=== PATIENT | male | born 1965 | race Caucasian/White ===

== ENCOUNTER 2017-08-31 11:57 | Emergency (ER) | payer OTHER, SELFPAY ==
[~2017-08-31 11:57] MED LIST: Iopamidol 370 76% 100 ML VIAL ONE; Sodium Chloride 0.9% 1,000 ML BAG ONE
[2017-08-31 12:30] LABS: Bilirubin Negative (Negative); Blood, Urine Negative (Negative); Clarity Clear (Clear); Glucose, Urine (Dipstick) Negative (Negative); Leukocyte Negative (Negative); Nitrite Negative (Negative); Protein, Urine (Dipstick) Negative (Neg-Trace)
[2017-08-31] MEDS ORDERED: Ondansetron HCl/PF 4 MG/2 ML Vial ONE ×2 (12:35→13:37)
[2017-08-31] MEDS ORDERED: Pantoprazole 40 MG VIAL ONE (12:35)
[2017-08-31] MEDS ORDERED: Ketorolac Tromethamine 30 MG/ML VIAL ONE (12:35)
[2017-08-31 12:49] LABS: #Basophils 0.1 thou/uL (0.0-0.2); #Lymphocytes 3.6 thou/uL (1.20-3.40); #Monocytes 0.9 thou/uL (0.11-0.59); #Neutrophils 5.6 thou/uL (1.40-6.50); %Basophils 0.9 % (0.0-1.0); %Eosinophils 0.4 % (0.0-10.0); %Lymphocytes 35.3 % (21.0-51.0); %Monocytes 8.9 % (0.0-10.0); %Neutrophils 54.5 % (42.0-75.0); Hemoglobin 18.3 g/dL (14.0-18.0); Mean Corpuscular HGB CONC 33.2 g/dL (32.0-36.0); Mean Corpuscular Hemoglobin 30.8 pg (27.0-31.0); Mean Corpuscular Volume 92.8 fl (80.0-94.0); Mean Platelet Volume 10.1 fL (7.4-10.4); PLT Morphology Comment Appears Adequate; Platelet Count 295 thou/uL (130-400); RBC Distribution Width 10.7 % (11.5-14.5); Red Blood Cell (RBC) Count 5.93 mill/uL (4.70-6.10); White Blood Cell (WBC) Count 10.3 thou/uL (4.8-10.8)
[2017-08-31 12:59] LABS: ALT (SGPT) 58 U/L (8-55); AST (SGOT) 34 U/L (5-34); Albumin 4.3 g/dL (3.5-5.0); Alkaline Phosphatase 101 U/L (40-150); Anion Gap 18 mmol/L (10-20); BUN (Urea Nitrogen) 15 mg/dL (8.4-25.7); CK (CPK) 38 U/L (30-200); Calc. Creatinine Clearance 0 mL/min (70-130); Calcium 10.6 mg/dL (7.8-10.44); Carbon Dioxide 23 mmol/L (22-29); Chloride 100 mmol/L (98-107); Estimated GFR-MDRD Greater than 90; Globulin 3.8 g/dL (2.4-3.5); Glucose 116 mg/dL (70-105); Lipase 28 U/L (8-78); Potassium 3.8 mmol/L (3.5-5.1); Protein, Total 8.1 g/dL (6.0-8.3); Sodium 137 mmol/L (136-145)
[2017-08-31] MEDS ORDERED: MORPHINE 10 MG/ML SYRINGE ONE (13:37)
--- NOTE | 2017-08-31 14:52 | CT ---
CT ABDOMEN AND PELVIS WITH CONTRAST: History: Midline lower abdominal pain. Comparison: None. FINDINGS: Lung bases are clear. No pericardial effusion. Portal vein is patent. The spleen measures just under 12 cm. Liver is unremarkable. Gallbladder is unremarkable. There is a tiny mass within the pancreatic tail x 2 suggesting pancreatic lipoma. Moderate atherosclerotic plaque of the aorta. No aneurysmal dilatation. No adenopathy in the abdomen or pelvis. Fat containing right sided direct hiatal hernia. Appendix is not definitely visualized although there are no secondary signs of acute appendicitis. No dilated loops of large or small bowel. No free intraperitoneal gas or fluid. Moderate degenerative disc space disease at L2-5. There is a bilateral pars interarticularis defect a t L5 with grade I anterolisthesis. Punctate nonobstructed calculus interpolar left kidney. Adrenal gl ands are unremarkable. IMPRESSION: 1. Punctate calculus interpolar left kidney, nonobstructed. 2. No acute inflammatory process in the abdomen or pelvis. 3. Fat containing right sided direct inguinal hernia. 4. No evidence for bowel obstruction. 5. Normal gallbladder. POS: OFF
== END 2017-08-31 14:55 | disposition home or self-care (01) ==
LOC: MADERS 11:57
DX: R11.2 Nausea with vomiting, unspecified (principal); R10.84 Generalized abdominal pain; G89.29 Other chronic pain; Z79.891 Long term (current) use of opiate analgesic
CPT/HCPCS: 74177; 80053; 81003; 82550; 83690; 85025; 96361; 96374; 96375; 96376; C9113; J1885; J2270; J2405; J7050

== ENCOUNTER 2017-09-20 20:07 | Emergency (ER) | payer SELFPAY ==
[2017-09-20] MEDS ORDERED: Dexamethasone 4 MG TAB ONE (20:29)
[2017-09-20] MEDS ORDERED: Ketorolac Tromethamine 60 MG/2 ML VIAL ONE (20:29)
[2017-09-20] MEDS ORDERED: Acetaminophen 500 MG TAB ONE (20:29)
== END 2017-09-20 21:04 | disposition home or self-care (01) ==
LOC: MADERS 20:07
DX: M25.552 Pain in left hip (principal); M25.562 Pain in left knee
CPT/HCPCS: 96372; J1885; J8540

== ENCOUNTER 2017-09-25 08:11 | Emergency (ER) | payer SELFPAY ==
[2017-09-25] MEDS ORDERED: Ondansetron ODT 4 MG TAB ONE (08:42)
--- NOTE | 2017-09-25 09:25 | RAD ---
RADIOGRAPH CHEST 1 VIEW RADIOGRAPH ABDOMEN 2 VIEWS: HISTORY: A 52-year-old male with generalized abdominal pain. FINDINGS: There are no air space densities or pulmonary edema. The lateral costophrenic angles are sharp. The re is no evidence of pneumothorax or pneumoperitoneum. There is no evidence of dilated small bowel loops. There are no differential air/fluid levels. Ther e is a moderate volume of colonic stool. IMPRESSION: 1) No acute pulmonary findings. 2) No evidence of bowel obstruction. 3) Possible constipation. [place] [] POS: ARMAAN
[2017-09-25] MEDS ORDERED: Mag-Al Plus 1200 MG/1200 MG/120 MG/30 ML UDCUP ONE (09:28)
[2017-09-25 09:35] LABS: #Basophils 0.1 thou/uL (0.0-0.2); #Eosinphils 0.2 thou/uL (0.0-0.7); #Lymphocytes 2.4 thou/uL (1.20-3.40); #Monocytes 0.6 thou/uL (0.11-0.59); #Neutrophils 4.8 thou/uL (1.40-6.50); %Eosinophils 1.9 % (0.0-10.0); %Lymphocytes 30.1 % (21.0-51.0); %Monocytes 7.8 % (0.0-10.0); %Neutrophils 59.2 % (42.0-75.0); Hemoglobin 15.3 g/dL (14.0-18.0); Mean Corpuscular HGB CONC 34.1 g/dL (32.0-36.0); Mean Corpuscular Hemoglobin 31.4 pg (27.0-31.0); Mean Corpuscular Volume 91.9 fl (80.0-94.0); Mean Platelet Volume 10.4 fL (7.4-10.4); Platelet Count 204 thou/uL (130-400); RBC Distribution Width 10.7 % (11.5-14.5); Red Blood Cell (RBC) Count 4.87 mill/uL (4.70-6.10)
[2017-09-25 09:55] LABS: ALT (SGPT) 60 U/L (8-55); AST (SGOT) 41 U/L (5-34); Albumin 3.8 g/dL (3.5-5.0); Alcohol Less than 10 mg/dL (Less than 10); Alkaline Phosphatase 85 U/L (40-150); Anion Gap 13 mmol/L (10-20); BUN (Urea Nitrogen) 17 mg/dL (8.4-25.7); Bilirubin, Total 0.4 mg/dL (0.2-1.2); Calc. Creatinine Clearance 0 mL/min (70-130); Calcium 9.7 mg/dL (7.8-10.44); Carbon Dioxide 23 mmol/L (22-29); Chloride 105 mmol/L (98-107); Estimated GFR-MDRD Greater than 90; Globulin 2.6 g/dL (2.4-3.5); Glucose 102 mg/dL (70-105); Lipase 35 U/L (8-78); Potassium 3.7 mmol/L (3.5-5.1); Protein, Total 6.4 g/dL (6.0-8.3); Sodium 137 mmol/L (136-145)
[2017-09-25 10:11] LABS: Amphetamine Not Detected (NotDetected); Barbiturates Screen Not Detected (NotDetected); Benzodiazepine Screen Not Detected (NotDetected); Bilirubin Negative (Negative); Blood, Urine Trace (Negative); Clarity Clear (Clear); Cocaine Metabolite Screen Not Detected (NotDetected); Glucose, Urine (Dipstick) Negative (Negative); Leukocyte Negative (Negative); Methadone Not Detected (NotDetected); Methamphetamine Not Detected (NotDetected); Nitrite Negative (Negative); Opiate Screen Detected (NotDetected); Phencyclidine (PCP) Not Detected (NotDetected); Protein, Urine (Dipstick) Negative (Neg-Trace); Specific Gravity, Urine 1.015 (1.005-1.030); THC/Cannabinoid Screen Detected (NotDetected); Tricyclic Screen Not Detected (NotDetected); Urobilinogen 0.2 mg/dL (0.2-1.0)
[2017-09-25 10:12] LABS: Medtox Control Line Valid? VALID (VALID); Oxycodone Screen Not Detected (NotDetected)
[2017-09-25 10:16] LABS: Bacteria/HPF Rare-Few HPF (None Seen); RBC/HPF 0-3 HPF (0-3); Squamous Epithelial 0-3 HPF (0-3); WBC/HPF None Seen HPF (0-3)
[2017-09-25] MEDS ORDERED: Promethazine HCl 25 MG/ML VIAL ONE (10:49)
== END 2017-09-25 11:00 | disposition home or self-care (01) ==
LOC: MADERS 08:11
DX: K29.70 Gastritis, unspecified, without bleeding (principal); G89.29 Other chronic pain; F17.210 Nicotine dependence, cigarettes, uncomplicated; Z79.899 Other long term (current) drug therapy
CPT/HCPCS: 36415; 74022; 80053; 80306; 80307; 81003; 81015; 83690; 85025; 96372; J2550; Q0162

== ENCOUNTER 2018-01-25 13:09 | Emergency (ER) | payer SELFPAY ==
[2018-01-25 13:43] LABS: #Eosinphils 0.2 thou/uL (0.0-0.7); #Lymphocytes 2.9 thou/uL (1.20-3.40); #Monocytes 0.6 thou/uL (0.11-0.59); #Neutrophils 4.3 thou/uL (1.40-6.50); %Basophils 0.6 % (0.0-1.0); %Eosinophils 2.5 % (0.0-10.0); %Monocytes 7.4 % (0.0-10.0); %Neutrophils 53.5 % (42.0-75.0); Mean Corpuscular HGB CONC 35.3 g/dL (32.0-36.0); Mean Corpuscular Hemoglobin 32.1 pg (27.0-31.0); Mean Corpuscular Volume 90.9 fL (78.0-98.0); Mean Platelet Volume 10.3 fL (7.4-10.4); Platelet Count 175 thou/uL (130-400); RBC Distribution Width 11.3 % (11.5-14.5); Red Blood Cell (RBC) Count 4.67 mill/uL (4.70-6.10); White Blood Cell (WBC) Count 8.1 thou/uL (4.8-10.8)
[2018-01-25 13:58] LABS: Anion Gap 15 mmol/L (10-20); BUN (Urea Nitrogen) 16 mg/dL (8.4-25.7); Calc. Creatinine Clearance 0 mL/min (70-130); Calcium 9.3 mg/dL (7.8-10.44); Carbon Dioxide 21 mmol/L (22-29); Chloride 109 mmol/L (98-107); Estimated GFR-MDRD 88; Glucose 146 mg/dL (70-105); Potassium 3.7 mmol/L (3.5-5.1); Sodium 141 mmol/L (136-145)
[2018-01-25] MEDS ORDERED: Morphine 4 MG/ML VIAL ONE (14:00)
[2018-01-25] MEDS ORDERED: Ketorolac Tromethamine 60 MG/2 ML VIAL ONE (14:01)
[2018-01-25] MEDS ORDERED: Lidocaine 1% 20 ML MDV ONE (14:21)
[2018-01-25] MEDS ORDERED: HYDROcodone/Acetaminophen 10/325 mg Tablet ONE (14:39)
[2018-01-25 17:05] LABS: BF Color Red; BF WBC/Nonhematics Ct. - Manua 20 /cumm; Body Fluid Source SYNOVIAL FLUID; Clarity Cloudy/Turbid (Clear); RBC Count-Automated 54000 /cumm; Tube # EDTA; WBC Background Count 0.01
[2018-01-25 17:06] LABS: BF Segmented Neutrophils 32 %; Cell Count Non Hematic 50 %; Lymphocytes 18 %
[2018-01-25] MEDS ORDERED: Dexamethasone 4 MG TAB ONE (17:25)
== END 2018-01-25 17:30 | disposition home or self-care (01) ==
LOC: MADERS 13:09
DX: M17.12 Unilateral primary osteoarthritis, left knee (principal); F17.210 Nicotine dependence, cigarettes, uncomplicated
CPT/HCPCS: 20610; 36415; 80048; 85025; 85060; 89051; 96374; 96375; J1885; J2001; J2270; J8540

== ENCOUNTER 2018-05-21 18:49 | Emergency (ER) | payer SELFPAY ==
[2018-05-21] MEDS ORDERED: Bupivacaine PF 0.5% 30 ML VIAL ONE (19:13)
[2018-05-21] MEDS ORDERED: Penicillin V Potassium 250 MG TAB ONE (19:26)
[2018-05-21] MEDS ORDERED: HYDROcodone/Acetaminophen 5/325 mg Tablet ONE (19:32)
== END 2018-05-21 19:37 | disposition home or self-care (01) ==
LOC: MADERS 18:49
DX: K04.7 Periapical abscess without sinus (principal); F17.210 Nicotine dependence, cigarettes, uncomplicated
CPT/HCPCS: 64400; S0020

== ENCOUNTER 2018-05-22 17:17 | Emergency (ER) | payer SELFPAY ==
[2018-05-22] MEDS ORDERED: Ketorolac Tromethamine 60 MG/2 ML VIAL ONE (17:43)
== END 2018-05-22 17:45 | disposition home or self-care (01) ==
LOC: MADERS 17:17
DX: K08.89 Other specified disorders of teeth and supporting structures (principal); F17.210 Nicotine dependence, cigarettes, uncomplicated; Z79.891 Long term (current) use of opiate analgesic; Z79.899 Other long term (current) drug therapy
CPT/HCPCS: 96372; J1885

== ENCOUNTER 2018-10-29 15:56 | Emergency (ER) | payer SELFPAY ==
[2018-10-29] MEDS ORDERED: Ketorolac Tromethamine 60 MG/2 ML VIAL ONE (16:16)
== END 2018-10-29 16:36 | disposition home or self-care (01) ==
LOC: MADERS 15:56
DX: S16.1XXA Strain of muscle, fascia and tendon at neck level, initial encounter (principal); M25.511 Pain in right shoulder; M79.10 Myalgia, unspecified site; F17.210 Nicotine dependence, cigarettes, uncomplicated; X58.XXXA Exposure to other specified factors, initial encounter
CPT/HCPCS: 96372; J1885

== ENCOUNTER 2019-05-21 16:30 | Emergency (ER) | payer SELFPAY ==
--- NOTE | 2019-05-21 17:11 | RAD ---
Left ankle 3 views HISTORY: Left ankle pain. FINDINGS: Mild joint space narrowing, osteophytosis, and subchondral sclerosis. Ankle mortise and olivier ar dome are intact. Degenerative changes of the hindfoot. Plantar and Achilles enthesophytes at the posterior aspect of the calcaneus. IMPRESSION: Moderate osteoarthritic changes of the left ankle. No acute osseous abnormalities are dem onstrated. Heel spurs.
[2019-05-21] MEDS ORDERED: Ondansetron ODT 4 MG TAB ONE (17:26)
[2019-05-21] MEDS ORDERED: Ketorolac Tromethamine 30 MG/ML VIAL ONE (17:26)
== END 2019-05-21 17:35 | disposition home or self-care (01) ==
LOC: MADERS 16:30
DX: M19.072 Primary osteoarthritis, left ankle and foot (principal); F17.210 Nicotine dependence, cigarettes, uncomplicated
CPT/HCPCS: 96372; J1885; Q0162

== ENCOUNTER 2019-06-02 16:24 | Emergency (ER) | payer SELFPAY | END 2019-06-02 16:55 | disposition home or self-care (01) | LOC: MADERS 16:24 | DX: M25.572 Pain in left ankle and joints of left foot (principal); F17.210 Nicotine dependence, cigarettes, uncomplicated | CPT/HCPCS: 99281 ==

== ENCOUNTER 2020-02-26 09:19 | Emergency (ER) | payer SELFPAY ==
--- NOTE | 2020-02-26 10:17 | RAD ---
Exam: XR Knee Rt 4 View STANDARD HISTORY: Right knee pain for one day. No history of trauma. COMPARISON: None FINDINGS: Minimal tricompartment osteophytosis is present. Calcifications overlie both the medial and lateral j oint compartments suggesting chondrocalcinosis. No acute fracture, dislocation, or other acute osseous abnormality is identified. IMPRESSION: 1. No acute osseous abnormalities right knee. 2. Minimal osteoarthritis with chondrocalcinosis.
== END 2020-02-26 11:05 | disposition home or self-care (01) ==
LOC: MADERS 09:19
DX: M25.572 Pain in left ankle and joints of left foot (principal); G89.29 Other chronic pain; M25.561 Pain in right knee; M10.9 Gout, unspecified; F17.210 Nicotine dependence, cigarettes, uncomplicated

== ENCOUNTER 2020-04-29 18:25 | Emergency (ER) | payer SELFPAY ==
[~2020-04-29 18:25] MED LIST changes: -Sodium Chloride 0.9% 1,000 ML BAG ONE
[2020-04-29] MEDS ORDERED: Lidocaine 1% w/Epinephrine 1:100K 20 ML VIAL ONE (19:11)
[2020-04-29] MEDS ORDERED: Sodium Chloride 0.9% 100 ML ONE (19:13)
[2020-04-29] MEDS ORDERED: Piperacillin/Tazobactam 4.5 GM VIAL ONE (19:13)
[2020-04-29 19:53] LABS: #Basophils 0.1 thou/uL (0.0-0.2); #Eosinphils 0.2 thou/uL (0.0-0.7); #Lymphocytes 2.1 thou/uL (1.20-3.40); #Monocytes 1.3 thou/uL (0.11-0.59); %Basophils 0.5 % (0.0-1.0); %Eosinophils 1.3 % (0.0-10.0); %Lymphocytes 15.3 % (21.0-51.0); %Monocytes 9.3 % (0.0-10.0); %Neutrophils 73.5 % (42.0-75.0); Hemoglobin 13.3 g/dL (14.0-18.0); Mean Corpuscular HGB CONC 33.2 g/dL (32.0-36.0); Mean Corpuscular Hemoglobin 30.2 pg (27.0-31.0); Mean Corpuscular Volume 90.9 fL (78.0-98.0); Mean Platelet Volume 9.6 fL (7.4-10.4); Platelet Count 216 thou/uL (130-400); Red Blood Cell (RBC) Count 4.39 mill/uL (4.70-6.10); White Blood Cell (WBC) Count 13.6 thou/uL (4.8-10.8)
[2020-04-29 20:11] LABS: ALT (SGPT) 28 U/L (8-55); AST (SGOT) 25 U/L (5-34); Albumin 3.8 g/dL (3.5-5.0); Alkaline Phosphatase 95 U/L (40-110); Anion Gap 14 mmol/L (10-20); BUN (Urea Nitrogen) 24 mg/dL (8.4-25.7); Bilirubin, Total 0.7 mg/dL (0.2-1.2); Calc. Creatinine Clearance 0 mL/min (70-130); Carbon Dioxide 21 mmol/L (22-29); Chloride 105 mmol/L (98-107); Estimated GFR-MDRD 88; Globulin 3.4 g/dL (2.4-3.5); Glucose 115 mg/dL (70-105); Potassium 3.3 mmol/L (3.5-5.1); Protein, Total 7.2 g/dL (6.0-8.3); Sodium 137 mmol/L (136-145)
--- NOTE | 2020-04-29 20:39 | CT ---
EXAM: CT NECK SOFT TISSUE POST CONTRAST: HISTORY:Difficulty swallowing. Dental pain. COMPARISON:None CORRELATION:None FINDINGS: Brain parenchyma: No pathologic enhancement of the visualized brain parenchyma. Sinuses: Mild mucosal thickening of the right maxillary sinus Orbits: Not assessed Nasopharynx:Adequate aeration. No mucosal abnormality. Oral cavity:No obvious masses in the anterior cavity. Midline fatty raphae of the tongue is preserved . There is mild edematous change involving the right submandibular space. There is a peripherally enhancing centrally hypodense focus in the right submandibular space measuring 0.8 cm suggesting poss ible abscess. There is a second larger peripherally enhancing hypodense focus in the right subareolar space measuring 2.3 x 4.7 cm. Hypopharynx: No mucosal abnormality. Epiglottis has a normal caliber. Preepiglottic fat is preserved .. Larynx: No mucosal abnormality with regards to the supraglottic, glottic and subglottic larynx. Paraspinal muscles: Symmetric attenuation of the paraspinal muscles and symmetric attenuation of the sternocleidomastoid muscles.. Parotid and salivary glands: There is asymmetric edema in the right submandibular gland. Vessels: No significant stenosis. Technique limits evaluation. Thyroid gland: Unremarkable. Spine: Vertebral body height is maintained. No fracture. No significant central canal stenosis or sig nificant neural foraminal narrowing. Limited evaluation due to technique. Lymph nodes: There are enlarged right level [address] [employer] right level 1 lymph node me asures 1.6 x 0.6 cm. Lung apices and upper mediastinum: No acute abnormality. Additional findings: There is induration of the right facial subcutaneous fat and soft tissues at the level of the right mandible. There is a periapical lucency involving the posterior-most right mandibular tooth without evidence of osseous erosion. There is mild edema involving the is adjacent g ingival soft tissues. IMPRESSION: 1. Periapical abscess involving the posterior-most right mandibular tooth. There are associated infla mmatory changes involving the adjacent soft tissues including the right sublingual space. There is inflammatory change in the overlying subcutaneous fat with induration. 2. Reactive lymphadenopathy. Reactive changes of the right submandibular gland 3. Peripherally enhancing fluid collection the right submandibular space likely representing developi ng soft tissue abscesses. Transcribed Date/Time: 04/29/2020 8:44 PM
[2020-04-29] MEDS ORDERED: Amoxicillin/Potassium Clav 875 MG TAB ONE (20:51)
[2020-04-29] MEDS ORDERED: Acetaminophen/Codeine 30-300mg Tablet ONE (20:51)
== END 2020-04-29 21:01 | disposition home or self-care (01) ==
LOC: MADERS 18:25
DX: K04.7 Periapical abscess without sinus (principal); K02.9 Dental caries, unspecified; M10.9 Gout, unspecified; F17.210 Nicotine dependence, cigarettes, uncomplicated; Z79.899 Other long term (current) drug therapy
CPT/HCPCS: 36415; 64400; 70491; 80053; 83605; 85025; 86140; 87040; 96365; J2543; J3490; Q9967

== ENCOUNTER 2020-05-28 15:24 | Outpatient (CLI) | payer OTHER ==
--- NOTE | 2020-05-28 16:06 | RAD ---
3 views of the left ankle: 05/28/2020 COMPARISON: 05/21/2020 HISTORY: Ankle pain FINDINGS: There are has been interval development of prominent erosive change involving the posterior aspect of the subtalar joint. There is soft tissue infiltration of the fat posterior to the talus on the lateral examination. Enthesophyte formation is seen at the origin of the plantar aponeurosis and insertion of the Achilles tendon. No acute fracture or dislocation is seen. IMPRESSION: Interval development of prominent erosive change centered at the posterior aspect of the left subtalar joint with erosive changes suspected within the adjacent calcaneus and talus. There is also new soft tissue swelling with infiltration of the fat posterior to the talus on the lateral v iew. This is most suspicious for inflammatory/infectious arthritis/septic arthritis. Changes associated with interval trauma may be a possibility as well. Recommend orthopedic consultation and further assessment MRI CODE T
--- NOTE | 2020-05-28 17:26 | RAD ---
LEFT FOOT: 05/28/20 Three views. HISTORY: Foot pain. There are enthesophytes from the posterior and plantar calcaneus. The posterior subtalar joint shows abnormality. This is better appreciated on the lateral view of the ankle. The joint is narrowed and there is evidence of cystic change at this joint. The findings are probably on the basis of arthritis. Associated coalition is not excluded. Recommend further evaluatio n with CT ankle to further evaluate the posterior subtalar joint. Tarsals, metatarsals and phalanges otherwise unremarkable. IMPRESSION: Abnormality involving the posterior subtalar joint. Recommend further evaluation with CT ankle. POS: AGW
== END 2020-05-28 15:25 | disposition home or self-care (01) ==
LOC: MADRAD 15:24
PROVIDERS: ATTEND Family Medicine
DX: M25.472 Effusion, left ankle (principal); M25.572 Pain in left ankle and joints of left foot; M76.62 Achilles tendinitis, left leg; M79.89 Other specified soft tissue disorders

== ENCOUNTER 2020-06-06 06:17 | Emergency (ER) | payer SELFPAY ==
[2020-06-06] MEDS ORDERED: Ondansetron PF 4 MG/2 ML Vial ONE (06:59)
[2020-06-06 07:09] LABS: CRP (Inflammatory) 3.06 mg/dL (= or < 0.5); Hemoglobin 16.2 g/dL (14.0-18.0); Mean Corpuscular HGB CONC 31.6 g/dL (32.0-36.0); Mean Corpuscular Hemoglobin 29.5 pg (27.0-31.0); Mean Corpuscular Volume 93.4 fL (78.0-98.0); Mean Platelet Volume 10.3 fL (7.4-10.4); Platelet Count 211 thou/uL (130-400); Red Blood Cell (RBC) Count 5.48 mill/uL (4.70-6.10); Uric Acid 8.2 mg/dL (3.5-7.2); White Blood Cell (WBC) Count 50.9 thou/uL (4.8-10.8)
[2020-06-06 07:11] LABS: ALT (SGPT) 82 U/L (8-55); AST (SGOT) 82 U/L (5-34); Albumin 3.7 g/dL (3.5-5.0); Alkaline Phosphatase 148 U/L (40-110); Anion Gap 18 mmol/L (10-20); BUN (Urea Nitrogen) 31 mg/dL (8.4-25.7); Bilirubin, Total 0.6 mg/dL (0.2-1.2); CK (CPK) 32 U/L (30-200); Calc. Creatinine Clearance 0 mL/min (70-130); Carbon Dioxide 19 mmol/L (22-29); Chloride 101 mmol/L (98-107); Estimated GFR-MDRD 47; Globulin 3.7 g/dL (2.4-3.5); Glucose 127 mg/dL (70-105); Potassium 4.6 mmol/L (3.5-5.1); Protein, Total 7.4 g/dL (6.0-8.3); Sodium 133 mmol/L (136-145)
[2020-06-06] MEDS ORDERED: Sodium Chloride 0.9% 1,000 ML ONE ×2 (07:13→08:10)
[2020-06-06 07:15] LABS: Anisocytosis SLIGHT = 6-15 cells (100X) (0-5/hpf); Band 54 % (5-11); Lymphocytes 1 % (21-51); MDiff Complete? YES; Manual Diff?? YES; Monocytes 3 % (0-10); Neutrophil 42 % (42-75); Platelet Morphology Comment Appears Adequate
[2020-06-06] MEDS ORDERED: Ketorolac Tromethamine 30 MG/ML VIAL ONE (07:20)
[2020-06-06] MEDS ORDERED: Morphine 4 MG/ML VIAL ONE (07:47)
--- NOTE | 2020-06-06 08:24 | CT ---
Exam: Left ankle CT scan without IV contrast: HISTORY: Pain COMPARISON: Left ankle x-ray, 05/28/2020 FINDINGS: There is extensive metal artifact from some type of adjacent metal object lateral to the foot and ank le. This considerably lowers the sensitivity of this study. There are extensive destructive changes involving the posterior subtalar joint with circumscribed intraosseous cystic changes in the posterio r lateral talus up to 1.4 cm in diameter and in the medial posterior talus up to 1.9 cm in size the margins of this articular destructive change. These periarticular destructive changes are fairly well -defined and some have sclerotic margins. There is also some nonspecific soft tissue swelling, possibly representing some joint effusion but in addition there appears to be more posterior nonspeci fic swelling/edema including the region of Kager's fat. This is nonspecific. Soft tissue changes are very poorly evaluated with CT. IMPRESSION: Very extensive destructive changes of the posterior subtalar joint with prominent circumscribed scler otic margin intraosseous destructive and cystic changes particularly in the posterior talus and adjacent calcaneus evidence for severe arthritis. This certainly could represent gouty arthritis or p ossibly even infectious arthritis which I would favor over osteoarthritis or rheumatoid arthritis or posttraumatic arthritis. Correlate with laboratory findings. If the diagnosis is still in doubt, consider follow-up nonemergent ankle MRI which would allow better evaluation for soft tissue changes.
[2020-06-06 09:22] LABS: Bilirubin Negative (Negative); Blood, Urine Trace (Negative); Clarity Clear (Clear); Glucose, Urine (Dipstick) Negative (Negative); Ketone, Urine Negative (Negative); Leukocyte Negative (Negative); Nitrite Negative (Negative); Protein, Urine (Dipstick) Negative (Neg-Trace); Specific Gravity, Urine 1.025 (1.005-1.030); Urobilinogen 0.2 mg/dL (Less than 2); pH, Urine 5.5 (5.0-9.0)
[2020-06-06 09:30] LABS: RBC/HPF 0-3 HPF (0-3); Squamous Epithelial 0-3 HPF (0-3); WBC/HPF 0-3 HPF (0-3); Yeast-Budding Rare HPF (None Seen)
[2020-06-06 09:31] LABS: Cocaine Metabolite Screen Not Detected (NotDetected); Methamphetamine Not Detected (NotDetected); Phencyclidine (PCP) Not Detected (NotDetected); THC/Cannabinoid Screen Detected (NotDetected)
[2020-06-06 09:32] LABS: Amphetamine Not Detected (NotDetected); Barbiturates Screen Not Detected (NotDetected); Benzodiazepine Screen Not Detected (NotDetected); Medtox Control Line Valid? VALID (VALID); Methadone Not Detected (NotDetected); Opiate Screen Detected (NotDetected); Oxycodone Screen Not Detected (NotDetected); Tricyclic Screen Not Detected (NotDetected)
== END 2020-06-06 09:16 | disposition short-term general hospital (02) ==
LOC: MADERS 06:17
DX: M86.9 Osteomyelitis, unspecified (principal); F17.210 Nicotine dependence, cigarettes, uncomplicated; M10.9 Gout, unspecified
CPT/HCPCS: 80053; 80306; 81003; 81015; 82550; 83605; 84550; 85025; 85060; 86140; 87040; 96361; 96374; 96375; J1885; J2270; J2405; J7050

== ENCOUNTER 2021-06-27 10:07 | Emergency (ER) | payer MEDICAID, SELFPAY ==
[2021-06-27] MEDS ORDERED: Ketorolac Tromethamine 30 MG/ML VIAL ONE (10:28)
[2021-06-27] MEDS ORDERED: Morphine 10 MG/ML VIAL ONE (10:28)
[2021-06-27] MEDS ORDERED: Diazepam 5 MG TAB ONE (10:36)
[2021-06-27] MEDS ORDERED: Dexamethasone 4 mg/ml Vial ONE (11:34)
[2021-06-27] MEDS ORDERED: Morphine 4 MG/ML VIAL ONE ×2 (12:09→15:33)
[2021-06-27 12:12] LABS: SARS-CoV-2 NAA Rapid Test DETECTED (NotDetected)
[2021-06-27] MEDS ORDERED: Ondansetron PF 4 MG/2 ML Vial ONE (15:33)
== END 2021-06-27 15:37 | disposition short-term general hospital (02) ==
LOC: MADERS 10:07
DX: U07.1 COVID-19 (principal); M48.061 Spinal stenosis, lumbar region without neurogenic claudication; K21.9 Gastro-esophageal reflux disease without esophagitis; F17.210 Nicotine dependence, cigarettes, uncomplicated; M10.9 Gout, unspecified
CPT/HCPCS: 36415; 86140; 94760; 96372; 96374; 96375; 96376; J1100; J1885; J2270; J2405; U0002

== ENCOUNTER 2021-07-06 09:33 | Emergency (ER) | payer SELFPAY ==
[2021-07-06] MEDS ORDERED: Dexamethasone 10 MG/ML VIAL ONE (09:51)
[2021-07-06] MEDS ORDERED: Ketorolac Tromethamine 30 MG/ML VIAL ONE (09:51)
[2021-07-06 10:52] LABS: Mean Corpuscular HGB CONC 32.8 g/dL (32.0-36.0); Mean Corpuscular Hemoglobin 29.5 pg (27.0-31.0); Mean Corpuscular Volume 90.1 fL (78.0-98.0); Mean Platelet Volume 8.9 fL (7.4-10.4); Platelet Count 317 thou/uL (130-400); RBC Distribution Width 10.3 % (11.5-14.5); Red Blood Cell (RBC) Count 6.45 mill/uL (4.70-6.10); White Blood Cell (WBC) Count 21.5 thou/uL (4.8-10.8)
[2021-07-06 10:59] LABS: ALT (SGPT) 39 U/L (8-55); AST (SGOT) 25 U/L (5-34); Albumin 3.6 g/dL (3.5-5.0); Alkaline Phosphatase 114 U/L (40-110); Anion Gap 15 mmol/L (10-20); BUN (Urea Nitrogen) 32 mg/dL (8.4-25.7); Bilirubin, Total 1.1 mg/dL (0.2-1.2); Calc. Creatinine Clearance 0 mL/min (70-130); Carbon Dioxide 23 mmol/L (22-29); Chloride 98 mmol/L (98-107); Globulin 3.9 g/dL (2.4-3.5); Glucose 115 mg/dL (70-105); Potassium 4.4 mmol/L (3.5-5.1); Protein, Total 7.5 g/dL (6.0-8.3); Sodium 132 mmol/L (136-145)
[2021-07-06 11:00] LABS: MDiff Complete? YES
[2021-07-06 11:03] LABS: Lymphocytes 5 % (21-51); Monocytes 6 % (0-10); Neutrophil 87 % (42-75)
[2021-07-06 11:04] LABS: Band 2 % (5-11); Platelet Morphology Comment Appears Adequate
[2021-07-06 11:16] LABS: Calcium 12.3 mg/dL (7.8-10.44)
[2021-07-06] MEDS ORDERED: Morphine 10 MG/ML VIAL ONE (11:52)
[2021-07-06 14:52] LABS: #Basophils 0.1 thou/uL (0.0-0.2); #Lymphocytes 0.6 thou/uL (1.20-3.40); #Monocytes 0.3 thou/uL (0.11-0.59); #Neutrophils 19.4 thou/uL (1.40-6.50); %Basophils 0.4 % (0.0-1.0); %Eosinophils 0.1 % (0.0-10.0); %Lymphocytes 2.8 % (21.0-51.0); %Monocytes 1.3 % (0.0-10.0); %Neutrophils 95.4 % (42.0-75.0); Hemoglobin 17.5 g/dL (14.0-18.0); Mean Corpuscular HGB CONC 32.4 g/dL (32.0-36.0); Mean Corpuscular Hemoglobin 29.9 pg (27.0-31.0); Mean Corpuscular Volume 92.3 fL (78.0-98.0); Mean Platelet Volume 8.6 fL (7.4-10.4); Platelet Count 257 thou/uL (130-400); RBC Distribution Width 10.8 % (11.5-14.5); Red Blood Cell (RBC) Count 5.85 mill/uL (4.70-6.10); White Blood Cell (WBC) Count 20.3 thou/uL (4.8-10.8)
[2021-07-06 15:18] LABS: ALT (SGPT) 38 U/L (8-55); AST (SGOT) 31 U/L (5-34); Alkaline Phosphatase 102 U/L (40-110); Anion Gap 17 mmol/L (10-20); BUN (Urea Nitrogen) 32 mg/dL (8.4-25.7); Calc. Creatinine Clearance 0 mL/min (70-130); Calcium 11.2 mg/dL (7.8-10.44); Carbon Dioxide 18 mmol/L (22-29); Chloride 103 mmol/L (98-107); Globulin 3.8 g/dL (2.4-3.5); Glucose 121 mg/dL (70-105); Potassium 5.8 mmol/L (3.5-5.1); Protein, Total 6.8 g/dL (6.0-8.3); Sodium 132 mmol/L (136-145)
[2021-07-06 16:34] LABS: Potassium 4.8 mmol/L (3.5-5.1)
== END 2021-07-06 17:05 | disposition home or self-care (01) ==
LOC: MADERS 09:33
DX: M54.50 Low back pain, unspecified (principal); K21.9 Gastro-esophageal reflux disease without esophagitis; F17.210 Nicotine dependence, cigarettes, uncomplicated; M10.9 Gout, unspecified; Z79.899 Other long term (current) drug therapy
CPT/HCPCS: 36415; 80053; 85025; 96374; 96375; J1100; J1885; J2270

== ENCOUNTER 2021-07-08 02:59 | Emergency (ER) | payer SELFPAY ==
[2021-07-08] MEDS ORDERED: Orphenadrine Citrate 60 MG/2 ML VIAL ONE (03:15)
== END 2021-07-08 03:35 | disposition home or self-care (01) ==
LOC: MADERS 02:59
DX: M54.50 Low back pain, unspecified (principal); F17.210 Nicotine dependence, cigarettes, uncomplicated; Z79.899 Other long term (current) drug therapy
CPT/HCPCS: 96372; 99283; J2360

== ENCOUNTER 2021-07-15 06:21 | Emergency (ER) | payer SELFPAY ==
[2021-07-15] MEDS ORDERED: Cyclobenzaprine 10 MG TAB ONE (06:44)
[2021-07-15] MEDS ORDERED: Morphine 4 MG/ML VIAL ONE (06:44)
[2021-07-15] MEDS ORDERED: Ketorolac Tromethamine 60 MG/2 ML VIAL ONE (06:44)
== END 2021-07-15 07:25 | disposition home or self-care (01) ==
LOC: MADERS 06:21
DX: M54.50 Low back pain, unspecified (principal); G89.29 Other chronic pain; M62.830 Muscle spasm of back; K21.9 Gastro-esophageal reflux disease without esophagitis; M10.9 Gout, unspecified; F17.210 Nicotine dependence, cigarettes, uncomplicated; Z79.899 Other long term (current) drug therapy; Z87.19 Personal history of other diseases of the digestive system
CPT/HCPCS: 96372; 99283; J1885; J2270

== ENCOUNTER 2021-07-30 19:40 | Inpatient (IN) | payer BC ==
[2021-07-30] MEDS ORDERED: traZODone HCl 50 MG TAB PO PRN (20:20)
[2021-07-30] MEDS: oxyCODONE 5 MG TAB PO PRN (23:17)
[2021-07-30] MEDS: Melatonin 3 MG TAB PO PRN (23:17)
[2021-07-31] MEDS: oxyCODONE 5 MG TAB PO PRN ×4 (03:48→19:02)
[2021-07-31] MEDS: DAPTOmycin 500 MG in Sodium Chloride 0.9% 100 ML IVPB SCH (05:35)
[2021-07-31] MEDS: Ciprofloxacin 500 MG TAB PO SCH ×2 (05:35→19:03)
[2021-07-31] MEDS: Enoxaparin Sodium 40 MG/0.4 ML SYRINGE SC SCH (08:35)
[2021-07-31] MEDS: Multivit, Therapeutic 1 TAB PO SCH (08:35)
[2021-07-31] MEDS: Thiamine 100 MG TAB PO SCH (08:36)
[2021-07-31] MEDS: Melatonin 3 MG TAB PO PRN (20:17)
[2021-08-01] MEDS: oxyCODONE 5 MG TAB PO PRN ×5 (00:23→22:56)
[2021-08-01] MEDS: Acetaminophen 325 MG TAB PO PRN ×2 (00:23→05:24)
[2021-08-01] MEDS: Ciprofloxacin 500 MG TAB PO SCH ×2 (05:04→20:11)
[2021-08-01] MEDS: DAPTOmycin 500 MG in Sodium Chloride 0.9% 100 ML IVPB SCH (05:04)
[2021-08-01] MEDS: Enoxaparin Sodium 40 MG/0.4 ML SYRINGE SC SCH (09:34)
[2021-08-01] MEDS: Multivit, Therapeutic 1 TAB PO SCH (09:34)
[2021-08-01] MEDS: Saccharomyces boulardii 250 MG CAP PO SCH (09:34)
[2021-08-01] MEDS: Thiamine 100 MG TAB PO SCH (09:34)
[2021-08-01] MEDS ORDERED: oxyCODONE 5 MG TAB ONE (17:58)
[2021-08-01] MEDS: Melatonin 3 MG TAB PO PRN (20:11)
[2021-08-02] MEDS: oxyCODONE 5 MG TAB PO PRN ×5 (02:48→23:30)
[2021-08-02] MEDS: DAPTOmycin 500 MG in Sodium Chloride 0.9% 100 ML IVPB SCH (05:04)
[2021-08-02] MEDS: Ciprofloxacin 500 MG TAB PO SCH ×2 (05:04→18:59)
[2021-08-02] MEDS: Thiamine 100 MG TAB PO SCH (08:48)
[2021-08-02] MEDS: Saccharomyces boulardii 250 MG CAP PO SCH (08:48)
[2021-08-02] MEDS: Enoxaparin Sodium 40 MG/0.4 ML SYRINGE SC SCH (08:48)
[2021-08-02] MEDS: Multivit, Therapeutic 1 TAB PO SCH (08:48)
[2021-08-02] MEDS: Acetaminophen 325 MG TAB PO PRN ×2 (13:04→23:33)
[2021-08-02] MEDS: Melatonin 3 MG TAB PO PRN (20:43)
[2021-08-03] MEDS: oxyCODONE 5 MG TAB PO PRN ×5 (03:27→21:48)
[2021-08-03] MEDS: Ciprofloxacin 500 MG TAB PO SCH ×2 (04:59→20:24)
[2021-08-03] MEDS: DAPTOmycin 500 MG in Sodium Chloride 0.9% 100 ML IVPB SCH (04:59)
[2021-08-03 05:16] LABS: #Basophils 0.1 thou/uL (0.0-0.2); #Eosinphils 0.1 thou/uL (0.0-0.7); #Monocytes 1.1 thou/uL (0.11-0.59); #Neutrophils 4.9 thou/uL (1.40-6.50); %Basophils 1.1 % (0.0-1.0); %Eosinophils 1.5 % (0.0-10.0); %Lymphocytes 24.6 % (21.0-51.0); %Monocytes 13.2 % (0.0-10.0); %Neutrophils 59.6 % (42.0-75.0); Hemoglobin 14.7 g/dL (14.0-18.0); Mean Corpuscular HGB CONC 32.3 g/dL (32.0-36.0); Mean Corpuscular Hemoglobin 29.6 pg (27.0-31.0); Mean Corpuscular Volume 91.7 fL (78.0-98.0); Mean Platelet Volume 7.5 fL (7.4-10.4); Platelet Count 290 thou/uL (130-400); RBC Distribution Width 12.1 % (11.5-14.5); Red Blood Cell (RBC) Count 4.96 mill/uL (4.70-6.10); White Blood Cell (WBC) Count 8.3 thou/uL (4.8-10.8)
[2021-08-03 05:36] LABS: Anion Gap 12 mmol/L (10-20); BUN (Urea Nitrogen) 35 mg/dL (8.4-25.7); Calc. Creatinine Clearance 81 mL/min (70-130); Calcium 11.3 mg/dL (7.8-10.44); Carbon Dioxide 25 mmol/L (22-29); Chloride 104 mmol/L (98-107); Glucose 104 mg/dL (70-105); Sodium 137 mmol/L (136-145)
[2021-08-03] MEDS: Thiamine 100 MG TAB PO SCH (08:48)
[2021-08-03] MEDS: Multivit, Therapeutic 1 TAB PO SCH (08:48)
[2021-08-03] MEDS: Saccharomyces boulardii 250 MG CAP PO SCH (08:48)
[2021-08-03] MEDS: Enoxaparin Sodium 40 MG/0.4 ML SYRINGE SC SCH (08:49)
[2021-08-04] MEDS: oxyCODONE 5 MG TAB PO PRN ×5 (02:56→20:40)
[2021-08-04] MEDS: Ciprofloxacin 500 MG TAB PO SCH ×2 (05:29→20:40)
[2021-08-04] MEDS: DAPTOmycin 500 MG in Sodium Chloride 0.9% 100 ML IVPB SCH (05:29)
[2021-08-04] MEDS: Enoxaparin Sodium 40 MG/0.4 ML SYRINGE SC SCH (08:10)
[2021-08-04] MEDS: Saccharomyces boulardii 250 MG CAP PO SCH (08:10)
[2021-08-04] MEDS: Thiamine 100 MG TAB PO SCH (08:10)
[2021-08-04] MEDS: Multivit, Therapeutic 1 TAB PO SCH (08:10)
[2021-08-04] MEDS ORDERED: Lisinopril 5 MG TAB PO SCH (20:00)
[2021-08-04] MEDS: Melatonin 3 MG TAB PO PRN (20:40)
[2021-08-05] MEDS: oxyCODONE 5 MG TAB PO PRN ×6 (00:56→21:29)
[2021-08-05] MEDS: DAPTOmycin 500 MG in Sodium Chloride 0.9% 100 ML IVPB SCH (04:59)
[2021-08-05] MEDS: Ciprofloxacin 500 MG TAB PO SCH ×2 (04:59→19:58)
[2021-08-05] MEDS: Enoxaparin Sodium 40 MG/0.4 ML SYRINGE SC SCH (09:21)
[2021-08-05] MEDS: Thiamine 100 MG TAB PO SCH (09:22)
[2021-08-05] MEDS: Lisinopril 5 MG TAB PO SCH (09:22)
[2021-08-05] MEDS: Multivit, Therapeutic 1 TAB PO SCH (09:22)
[2021-08-05] MEDS: Saccharomyces boulardii 250 MG CAP PO SCH (09:22)
[2021-08-05] MEDS: Melatonin 3 MG TAB PO PRN (19:58)
[2021-08-06] MEDS: oxyCODONE 5 MG TAB PO PRN ×6 (01:45→23:00)
[2021-08-06] MEDS: DAPTOmycin 500 MG in Sodium Chloride 0.9% 100 ML IVPB SCH (05:00)
[2021-08-06] MEDS: Ciprofloxacin 500 MG TAB PO SCH ×2 (05:00→21:01)
[2021-08-06] MEDS: Saccharomyces boulardii 250 MG CAP PO SCH (08:40)
[2021-08-06] MEDS: Multivit, Therapeutic 1 TAB PO SCH (08:40)
[2021-08-06] MEDS: Lisinopril 5 MG TAB PO SCH (08:40)
[2021-08-06] MEDS: Thiamine 100 MG TAB PO SCH (08:41)
[2021-08-06] MEDS: Enoxaparin Sodium 40 MG/0.4 ML SYRINGE SC SCH (08:41)
[2021-08-06] MEDS: Melatonin 3 MG TAB PO PRN (21:01)
[2021-08-07] MEDS: oxyCODONE 5 MG TAB PO PRN ×4 (03:57→20:28)
[2021-08-07] MEDS: Ciprofloxacin 500 MG TAB PO SCH ×2 (05:57→20:29)
[2021-08-07] MEDS: DAPTOmycin 500 MG in Sodium Chloride 0.9% 100 ML IVPB SCH (06:01)
[2021-08-07] MEDS: Enoxaparin Sodium 40 MG/0.4 ML SYRINGE SC SCH (09:34)
[2021-08-07] MEDS: Thiamine 100 MG TAB PO SCH (09:35)
[2021-08-07] MEDS: Saccharomyces boulardii 250 MG CAP PO SCH (09:35)
[2021-08-07] MEDS: Lisinopril 5 MG TAB PO SCH (09:35)
[2021-08-07] MEDS: Multivit, Therapeutic 1 TAB PO SCH (09:35)
[2021-08-07] MEDS: Melatonin 3 MG TAB PO PRN (20:29)
[2021-08-08] MEDS: oxyCODONE 5 MG TAB PO PRN ×6 (00:43→21:05)
[2021-08-08] MEDS: DAPTOmycin 500 MG in Sodium Chloride 0.9% 100 ML IVPB SCH (05:46)
[2021-08-08] MEDS: Ciprofloxacin 500 MG TAB PO SCH ×2 (05:47→21:07)
[2021-08-08] MEDS: Saccharomyces boulardii 250 MG CAP PO SCH (09:00)
[2021-08-08] MEDS: Enoxaparin Sodium 40 MG/0.4 ML SYRINGE SC SCH (09:00)
[2021-08-08] MEDS: Lisinopril 5 MG TAB PO SCH (09:00)
[2021-08-08] MEDS: Thiamine 100 MG TAB PO SCH (09:00)
[2021-08-08] MEDS: Multivit, Therapeutic 1 TAB PO SCH (09:00)
[2021-08-09] MEDS: oxyCODONE 5 MG TAB PO PRN ×6 (02:05→23:06)
[2021-08-09] MEDS: Ciprofloxacin 500 MG TAB PO SCH ×2 (05:46→21:04)
[2021-08-09] MEDS: DAPTOmycin 500 MG in Sodium Chloride 0.9% 100 ML IVPB SCH (05:46)
[2021-08-09] MEDS: Lisinopril 5 MG TAB PO SCH (08:47)
[2021-08-09] MEDS: Saccharomyces boulardii 250 MG CAP PO SCH (08:47)
[2021-08-09] MEDS: Multivit, Therapeutic 1 TAB PO SCH (08:47)
[2021-08-09] MEDS: Thiamine 100 MG TAB PO SCH (08:47)
[2021-08-09] MEDS: Enoxaparin Sodium 40 MG/0.4 ML SYRINGE SC SCH (08:47)
[2021-08-10] MEDS: oxyCODONE 5 MG TAB PO PRN ×5 (03:06→20:59)
[2021-08-10] MEDS: DAPTOmycin 500 MG in Sodium Chloride 0.9% 100 ML IVPB SCH (05:54)
[2021-08-10] MEDS: Ciprofloxacin 500 MG TAB PO SCH ×2 (05:54→21:00)
[2021-08-10] MEDS: Thiamine 100 MG TAB PO SCH (08:11)
[2021-08-10] MEDS: Multivit, Therapeutic 1 TAB PO SCH (08:11)
[2021-08-10] MEDS: Enoxaparin Sodium 40 MG/0.4 ML SYRINGE SC SCH (08:12)
[2021-08-10] MEDS: Saccharomyces boulardii 250 MG CAP PO SCH (08:12)
[2021-08-10] MEDS: Lisinopril 5 MG TAB PO SCH (08:12)
[2021-08-10 11:01] LABS: Mean Corpuscular HGB CONC 32.2 g/dL (32.0-36.0); Mean Corpuscular Hemoglobin 29.5 pg (27.0-31.0); Mean Corpuscular Volume 91.6 fL (78.0-98.0); Platelet Count 201 thou/uL (130-400); RBC Distribution Width 11.8 % (11.5-14.5); Red Blood Cell (RBC) Count 4.74 mill/uL (4.70-6.10); White Blood Cell (WBC) Count 6.3 thou/uL (4.8-10.8)
[2021-08-10 11:35] LABS: Anion Gap 11 mmol/L (10-20); BUN (Urea Nitrogen) 23 mg/dL (8.4-25.7); CRP (Inflammatory) Less than 0.50 mg/dL (= or < 0.5); Calc. Creatinine Clearance 90 mL/min (70-130); Calcium 11.4 mg/dL (7.8-10.44); Carbon Dioxide 25 mmol/L (22-29); Chloride 108 mmol/L (98-107); Glucose 110 mg/dL (70-105); Potassium 4.2 mmol/L (3.5-5.1); Sodium 140 mmol/L (136-145)
[2021-08-10] MEDS: Ondansetron ODT 4 MG TAB PO PRN (16:32)
[2021-08-11] MEDS: oxyCODONE 5 MG TAB PO PRN ×5 (01:03→21:46)
[2021-08-11] MEDS: DAPTOmycin 500 MG in Sodium Chloride 0.9% 100 ML IVPB SCH (06:09)
[2021-08-11] MEDS: Ciprofloxacin 500 MG TAB PO SCH ×2 (06:09→21:46)
[2021-08-11] MEDS ORDERED: Mag-Al Plus 1200 MG/1200 MG/120 MG/30 ML UDCUP PO PRN (06:40)
[2021-08-11] MEDS: Lisinopril 5 MG TAB PO SCH (09:27)
[2021-08-11] MEDS: Thiamine 100 MG TAB PO SCH (09:28)
[2021-08-11] MEDS: Enoxaparin Sodium 40 MG/0.4 ML SYRINGE SC SCH (09:28)
[2021-08-11] MEDS: Multivit, Therapeutic 1 TAB PO SCH (09:28)
[2021-08-11] MEDS: Saccharomyces boulardii 250 MG CAP PO SCH (09:28)
[2021-08-11] MEDS: Ondansetron ODT 4 MG TAB PO PRN (21:49)
[2021-08-12] MEDS: oxyCODONE 5 MG TAB PO PRN ×5 (02:30→20:31)
[2021-08-12] MEDS: DAPTOmycin 500 MG in Sodium Chloride 0.9% 100 ML IVPB SCH (06:15)
[2021-08-12] MEDS: Ciprofloxacin 500 MG TAB PO SCH ×2 (06:24→20:31)
[2021-08-12] MEDS: Multivit, Therapeutic 1 TAB PO SCH (09:12)
[2021-08-12] MEDS: Lisinopril 5 MG TAB PO SCH (09:12)
[2021-08-12] MEDS: Thiamine 100 MG TAB PO SCH (09:12)
[2021-08-12] MEDS: Saccharomyces boulardii 250 MG CAP PO SCH (09:12)
[2021-08-12] MEDS: Enoxaparin Sodium 40 MG/0.4 ML SYRINGE SC SCH (09:13)
[2021-08-13] MEDS: oxyCODONE 5 MG TAB PO PRN ×5 (01:33→19:58)
[2021-08-13] MEDS: Ciprofloxacin 500 MG TAB PO SCH ×2 (05:37→19:58)
[2021-08-13] MEDS: DAPTOmycin 500 MG in Sodium Chloride 0.9% 100 ML IVPB SCH (05:37)
[2021-08-13] MEDS: Thiamine 100 MG TAB PO SCH (08:52)
[2021-08-13] MEDS: Saccharomyces boulardii 250 MG CAP PO SCH (08:52)
[2021-08-13] MEDS: Lisinopril 5 MG TAB PO SCH (08:52)
[2021-08-13] MEDS: Multivit, Therapeutic 1 TAB PO SCH (08:52)
[2021-08-13] MEDS: Enoxaparin Sodium 40 MG/0.4 ML SYRINGE SC SCH (08:52)
[2021-08-13] MEDS: Melatonin 3 MG TAB PO PRN (19:58)
[2021-08-14] MEDS: oxyCODONE 5 MG TAB PO PRN ×2 (01:17→05:43)
[2021-08-14] MEDS: Ciprofloxacin 500 MG TAB PO SCH ×2 (05:43→19:58)
[2021-08-14] MEDS: DAPTOmycin 500 MG in Sodium Chloride 0.9% 100 ML IVPB SCH (05:43)
[2021-08-14] MEDS ORDERED: HYDROcodone/Acetaminophen 5/325 mg Tablet PO PRN (06:29)
[2021-08-14] MEDS: Enoxaparin Sodium 40 MG/0.4 ML SYRINGE SC SCH (09:34)
[2021-08-14] MEDS: Multivit, Therapeutic 1 TAB PO SCH (09:35)
[2021-08-14] MEDS: Lisinopril 5 MG TAB PO SCH (09:35)
[2021-08-14] MEDS: Thiamine 100 MG TAB PO SCH (09:35)
[2021-08-14] MEDS: Saccharomyces boulardii 250 MG CAP PO SCH (09:36)
[2021-08-14] MEDS: HYDROcodone/Acetaminophen 10/325 mg Tablet PO PRN ×2 (12:13→19:56)
[2021-08-15] MEDS: HYDROcodone/Acetaminophen 10/325 mg Tablet PO PRN ×3 (03:56→20:02)
[2021-08-15] MEDS: DAPTOmycin 500 MG in Sodium Chloride 0.9% 100 ML IVPB SCH (05:06)
[2021-08-15] MEDS: Ciprofloxacin 500 MG TAB PO SCH ×2 (05:30→20:02)
[2021-08-15] MEDS: Enoxaparin Sodium 40 MG/0.4 ML SYRINGE SC SCH (08:51)
[2021-08-15] MEDS: Saccharomyces boulardii 250 MG CAP PO SCH (08:52)
[2021-08-15] MEDS: Multivit, Therapeutic 1 TAB PO SCH (08:52)
[2021-08-15] MEDS: Lisinopril 5 MG TAB PO SCH (08:52)
[2021-08-15] MEDS: Thiamine 100 MG TAB PO SCH (08:52)
[2021-08-16] MEDS: HYDROcodone/Acetaminophen 10/325 mg Tablet PO PRN ×3 (05:04→21:16)
[2021-08-16] MEDS: DAPTOmycin 500 MG in Sodium Chloride 0.9% 100 ML IVPB SCH (05:05)
[2021-08-16] MEDS: Ciprofloxacin 500 MG TAB PO SCH ×2 (05:41→21:16)
[2021-08-16] MEDS: Lisinopril 5 MG TAB PO SCH (09:03)
[2021-08-16] MEDS: Enoxaparin Sodium 40 MG/0.4 ML SYRINGE SC SCH (09:03)
[2021-08-16] MEDS: Multivit, Therapeutic 1 TAB PO SCH (09:04)
[2021-08-16] MEDS: Saccharomyces boulardii 250 MG CAP PO SCH (09:05)
[2021-08-16] MEDS: Thiamine 100 MG TAB PO SCH (09:05)
[2021-08-17] MEDS: HYDROcodone/Acetaminophen 10/325 mg Tablet PO PRN ×3 (03:04→18:17)
[2021-08-17] MEDS: DAPTOmycin 500 MG in Sodium Chloride 0.9% 100 ML IVPB SCH (05:10)
[2021-08-17] MEDS: Ciprofloxacin 500 MG TAB PO SCH ×2 (05:37→21:42)
[2021-08-17] MEDS: Saccharomyces boulardii 250 MG CAP PO SCH (08:40)
[2021-08-17] MEDS: Lisinopril 5 MG TAB PO SCH (08:40)
[2021-08-17] MEDS: Enoxaparin Sodium 40 MG/0.4 ML SYRINGE SC SCH (08:41)
[2021-08-17] MEDS: Thiamine 100 MG TAB PO SCH (08:42)
[2021-08-17] MEDS: Multivit, Therapeutic 1 TAB PO SCH (08:42)
[2021-08-17 15:18] VITALS: BMI 18.8
[2021-08-18] MEDS: HYDROcodone/Acetaminophen 10/325 mg Tablet PO PRN ×4 (01:31→21:01)
[2021-08-18] MEDS: DAPTOmycin 500 MG in Sodium Chloride 0.9% 100 ML IVPB SCH (06:23)
[2021-08-18] MEDS: Ciprofloxacin 500 MG TAB PO SCH ×2 (06:23→20:34)
[2021-08-18] MEDS: Saccharomyces boulardii 250 MG CAP PO SCH (07:51)
[2021-08-18] MEDS: Multivit, Therapeutic 1 TAB PO SCH (07:51)
[2021-08-18] MEDS: Thiamine 100 MG TAB PO SCH (07:51)
[2021-08-18] MEDS: Lisinopril 5 MG TAB PO SCH (07:51)
[2021-08-19] MEDS: HYDROcodone/Acetaminophen 10/325 mg Tablet PO PRN ×4 (03:35→22:10)
[2021-08-19] MEDS: DAPTOmycin 500 MG in Sodium Chloride 0.9% 100 ML IVPB SCH (05:58)
[2021-08-19] MEDS: Ciprofloxacin 500 MG TAB PO SCH ×2 (06:01→20:24)
[2021-08-19] MEDS: Lisinopril 5 MG TAB PO SCH (09:30)
[2021-08-19] MEDS: Saccharomyces boulardii 250 MG CAP PO SCH (09:31)
[2021-08-19] MEDS: Thiamine 100 MG TAB PO SCH (09:31)
[2021-08-19] MEDS: Multivit, Therapeutic 1 TAB PO SCH (09:31)
[2021-08-20] MEDS: HYDROcodone/Acetaminophen 10/325 mg Tablet PO PRN ×3 (04:47→20:04)
[2021-08-20] MEDS: DAPTOmycin 500 MG in Sodium Chloride 0.9% 100 ML IVPB SCH (05:06)
[2021-08-20] MEDS: Ciprofloxacin 500 MG TAB PO SCH ×2 (05:34→20:04)
[2021-08-20] MEDS: Multivit, Therapeutic 1 TAB PO SCH (08:10)
[2021-08-20] MEDS: Thiamine 100 MG TAB PO SCH (08:10)
[2021-08-20] MEDS: Saccharomyces boulardii 250 MG CAP PO SCH (08:10)
[2021-08-20] MEDS: Lisinopril 5 MG TAB PO SCH (08:10)
[2021-08-21] MEDS: HYDROcodone/Acetaminophen 10/325 mg Tablet PO PRN ×2 (03:01→10:47)
[2021-08-21] MEDS: DAPTOmycin 500 MG in Sodium Chloride 0.9% 100 ML IVPB SCH (05:10)
[2021-08-21] MEDS: Ciprofloxacin 500 MG TAB PO SCH (05:47)
[2021-08-21 07:14] VITALS: TEMP 97.9
[2021-08-21] MEDS: Lisinopril 5 MG TAB PO SCH (09:08)
[2021-08-21] MEDS: Thiamine 100 MG TAB PO SCH (09:08)
[2021-08-21] MEDS: Saccharomyces boulardii 250 MG CAP PO SCH (09:08)
[2021-08-21] MEDS: Multivit, Therapeutic 1 TAB PO SCH (09:08)
[2021-08-21 09:10] VITALS: BP 129/74
== END 2021-08-21 14:40 | disposition home or self-care (01) | DRG 541 ==
LOC: MADMS 19:40 → UNDOADMIN 19:40
PROVIDERS: ADMIT Family Medicine; ATTEND Family Medicine
DX: M46.26 Osteomyelitis of vertebra, lumbar region (principal); K21.9 Gastro-esophageal reflux disease without esophagitis; G89.29 Other chronic pain; M10.9 Gout, unspecified; E21.3 Hyperparathyroidism, unspecified; R53.81 Other malaise; G47.00 Insomnia, unspecified; R11.0 Nausea; I10 Essential (primary) hypertension; Z90.49 Acquired absence of other specified parts of digestive tract; Z79.899 Other long term (current) drug therapy; Z72.0 Tobacco use
CPT/HCPCS: 36415; 80048; 84550; 85025; 85027; 86140; J0878; J1650; J3490; Q0162

== ENCOUNTER 2022-07-08 12:39 | Emergency (ER) | payer BC ==
[2022-07-08] MEDS ORDERED: Ketorolac Tromethamine 60 MG/2 ML VIAL ONE (14:36)
[2022-07-08 14:55] LABS: Hemoglobin 15.6 g/dL (14.0-18.0); Mean Corpuscular HGB CONC 33.7 g/dL (32.0-36.0); Mean Corpuscular Hemoglobin 31.8 pg (27.0-31.0); Mean Corpuscular Volume 94.4 fl (78.0-98.0); Platelet Count 169 10x3/uL (130-400); RBC Distribution Width 11.1 % (11.5-14.5); White Blood Cell (WBC) Count 6.8 10x3/uL (4.8-10.8)
[2022-07-08 14:56] LABS: #Basophils 0.1 thou/uL (0.0-0.2); #Eosinphils 0.2 thou/uL (0.0-0.7); #Monocytes 0.5 thou/uL (0.11-0.59); #Neutrophils 4.1 thou/uL (1.40-6.50); %Basophils 0.9 % (0.0-1.0); %Eosinophils 3.3 % (0.0-10.0); %Lymphocytes 28.5 % (21.0-51.0); %Neutrophils 60.3 % (42.0-75.0)
[2022-07-08 15:07] LABS: ALT (SGPT) 54 U/L (8-55); AST (SGOT) 37 U/L (5-34); Albumin 4.1 g/dL (3.5-5.0); Alkaline Phosphatase 105 U/L (40-110); Anion Gap 11 mmol/L (10-20); BUN (Urea Nitrogen) 20 mg/dL (8.4-25.7); Bilirubin, Total 0.3 mg/dL (0.2-1.2); Calc. Creatinine Clearance 0 mL/min (70-130); Carbon Dioxide 21 mmol/L (22-29); Chloride 110 mmol/L (98-107); Estimated GFR 100; Globulin 2.8 g/dL (2.4-3.5); Glucose 102 mg/dL (70-105); Potassium 4.2 mmol/L (3.5-5.1); Protein, Total 6.9 g/dL (6.0-8.3); Sodium 138 mmol/L (136-145)
== END 2022-07-08 15:30 | disposition home or self-care (01) ==
LOC: MADERS 12:39
DX: M54.9 Dorsalgia, unspecified (principal); K21.9 Gastro-esophageal reflux disease without esophagitis; F17.210 Nicotine dependence, cigarettes, uncomplicated
CPT/HCPCS: 36415; 80053; 85025; 86140; 96372; 99283; J1885

== ENCOUNTER 2023-11-03 14:41 | Emergency (ER) | payer BC, OTHER ==
[2023-11-03 16:06] LABS: #Basophils 0.1 thou/uL (0.0-0.2); #Eosinphils 0.2 thou/uL (0.0-0.7); #Lymphocytes 1.7 thou/uL (1.20-3.40); #Monocytes 0.7 thou/uL (0.11-0.59); %Basophils 1.8 % (0.0-1.0); %Lymphocytes 22.2 % (21.0-51.0); %Monocytes 8.7 % (0.0-10.0); %Neutrophils 65.3 % (42.0-75.0); Hematocrit 45.2 % (42.0-52.0); Hemoglobin 14.1 g/dL (14.0-18.0); Mean Corpuscular HGB CONC 31.3 g/dL (32.0-36.0); Mean Corpuscular Hemoglobin 30.4 pg (27.0-31.0); Mean Corpuscular Volume 97.3 fl (78.0-98.0); Mean Platelet Volume 9.3 fL (7.4-10.4); Platelet Count 226 10x3/uL (130-400); RBC Distribution Width 11.3 % (11.5-14.5); Red Blood Cell (RBC) Count 4.64 mill/uL (4.70-6.10); White Blood Cell (WBC) Count 7.7 10x3/uL (4.8-10.8)
[2023-11-03 16:18] LABS: ALT (SGPT) 46 U/L (8-55); AST (SGOT) 36 U/L (5-34); Albumin 4.1 g/dL (3.5-5.0); Alkaline Phosphatase 89 U/L (40-110); Anion Gap 15 mmol/L (10-20); BUN (Urea Nitrogen) 29 mg/dL (8.4-25.7); Bilirubin, Total 0.9 mg/dL (0.2-1.2); Calc. Creatinine Clearance 0 mL/min (70-130); Calcium 11.6 mg/dL (7.8-10.44); Carbon Dioxide 19 mmol/L (22-29); Chloride 111 mmol/L (98-107); Estimated GFR 62; Globulin 3.1 g/dL (2.4-3.5); Glucose 98 mg/dL (70-105); Potassium 3.8 mmol/L (3.5-5.1); Protein, Total 7.2 g/dL (6.0-8.3); Sodium 141 mmol/L (136-145)
[2023-11-03 16:19] LABS: Troponin I Less than 0.010 ng/mL (< 0.028)
== END 2023-11-03 16:30 | disposition home or self-care (01) ==
LOC: MADERS 14:41
DX: R53.83 Other fatigue (principal); F17.210 Nicotine dependence, cigarettes, uncomplicated
CPT/HCPCS: 36415; 71045; 80053; 84484; 85025; 93005

== ENCOUNTER 2024-04-12 18:33 | Emergency (ER) | payer BC, OTHER ==
[2024-04-12] MEDS ORDERED: Ibuprofen 800 MG TAB ONE (19:29)
[2024-04-12] MEDS ORDERED: Lidocaine 4% Cream 5 GM TUBE w/ Tegaderm ONE (19:29)
[2024-04-12] MEDS ORDERED: diphenhydrAMINE 25 MG CAP ONE (19:29)
[2024-04-12] MEDS ORDERED: Acetaminophen 500 MG TAB ONE (19:29)
== END 2024-04-12 18:54 | disposition home or self-care (01) ==
LOC: MADERS 18:33
DX: T63.461A Toxic effect of venom of wasps, accidental (unintentional), initial encounter (principal); F17.210 Nicotine dependence, cigarettes, uncomplicated
CPT/HCPCS: 99282